=== PATIENT | male | born 1980 | race Caucasian/White ===

== ENCOUNTER → 2020-12-19 | Outpatient (CLI) | payer OTHER | LOC: RAD 16:41 | DX: S20.20XA Contusion of thorax, unspecified, initial encounter (principal) | CPT/HCPCS: 71046; 71101 ==

== ENCOUNTER → 2021-05-01 | Outpatient (CLI) | payer BC ==
[~2021-05-01] VITALS: Ht 180.3 cm; Wt 99.8 kg
== END ==
LOC: EROP 11:10
DX: U07.1 COVID-19 (principal); Z23 Encounter for immunization; J98.4 Other disorders of lung
CPT/HCPCS: M0247; Q0247